=== PATIENT | female | born 1945 | race Caucasian/White ===

== ENCOUNTER 2017-08-02 10:33 | Emergency (ER) | payer MEDICARE, BC ==
[~2017-08-02] VITALS: Ht 172.7 cm; Wt 68.9 kg
[~2017-08-02 10:33] MED LIST: ESTR0.5T PO; LAMO100T2 PO; LEVO137T24 PO; PROG50VI3 PO; SERT100T PO
--- NOTE | 2017-08-02 10:45 | NUR ---
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 WAITING FOR MD ROJAS
[2017-08-02] MEDS ORDERED: HYDROCODONE/APAP 10/325MG 1 EA TABLET ONE (11:10)
[2017-08-02] MEDS ORDERED: LIDOCAINE 1%-EPI 1:100,000 50 ML VIAL IJ ONE ×2 (11:10→11:30)
[2017-08-02] MEDS ORDERED: LET SOLN TOPICAL 8 ML UDC TP ONE ×2 (11:10→11:30)
--- NOTE | 2017-08-02 11:15 | NUR ---
pt to ctscan
[2017-08-02] MEDS ORDERED: HYDROCODONE/APAP 10/325MG 1 EA TABLET PO ONE (11:30)
[2017-08-02] MEDS ORDERED: LIDOCAINE /MPF 1% VIAL 5 ML VIAL ONE (11:56)
[2017-08-02 12:45] VITALS: BP 134/80
== END 2017-08-02 12:45 | disposition home or self-care (01) ==
LOC: ER 10:34
DX: S01.81XA Laceration without foreign body of other part of head, initial encounter (principal); F32.9 Major depressive disorder, single episode, unspecified; Z88.2 Allergy status to sulfonamides; W01.0XXA Fall on same level from slipping, tripping and stumbling without subsequent striking against object, initial encounter; Y93.89 Activity, other specified; Y92.89 Other specified places as the place of occurrence of the external cause; Y99.8 Other external cause status
CPT/HCPCS: 12013; 70450; 99284; A4606; A6402 ×2; J3490 ×2; Z7610